=== PATIENT | male | born 1955 | race Caucasian/White ===

== ENCOUNTER 2022-04-21 03:39 | Emergency (ER) | payer OTHER ==
--- OUTSIDE RECORDS SUMMARY | 2022-04-21 03:42 | XMS REPORT | Continuity of Care Document ---
:[address] [facility] t Address [address] [place] [address] [address]. Al[address] [place] [address] Care Team Providers Name Role Phone Unavailable Unavailable Unavailable Payers Payer Name Policy Type Policy Number Effective Date Expiration Date José Miguel finney [facility] [id number] 2021 00:00:00 Problems This patient has no known problems. Allergies, Adverse Reactions, Alerts This patient has no known allergies or adverse reactions. Medications This patient has no known medications. Procedures This patient has no known procedures. Encounters Start End Encounter Admission Attending Care Care Encounter Source Date/Time Date/Time Type Type Clinicians Facility Department ID 2022-04-09 Outpatient [facility] [id number] [place] 09:21:02 [id number] Health Results This patient has no known results.
[2022-04-21 05:01] LABS: Absolute Lymphocytes (CBC) 0.8 K/uL (0.7-4.9); Hematocrit 32.4 % (39.6-49.0); Lymphocytes % 13.7 % (15.3-44.8); MCV 89.7 fL (80-100); MPV 9.4 fL (7.6-11.3); RBC Red Blood Cell Count 3.62 M/uL (4.33-5.43)
[2022-04-21] MEDS ORDERED: FUROSEMIDE 40 MG/4 ML VIAL ONE (05:01)
[2022-04-21 05:05] LABS: Protime INR 1.95
--- NOTE | 2022-04-21 05:12 | ER ---
Nurse's Notes [facility] Name: Khris Braden Age: 67 yrs Sex: Male : 1955 Arrival Date: 04/21/2022 Time: 03:40 Bed 14 Private MD: Diagnosis: Unspecified combined systolic (congestive) and diastolic (congestive) heart failure;Dyspnea;Chronic kidney disease, stage 4 (severe);Liver transplant status;Non ST elevation [place];truck terminal manager (current) use of anticoagulants;Coronavirus infection, unspecified;SARS-associated coronavirus as the cause of diseases classified elsewhere Presentation: 04/21 03:47 Chief complaint: Patient states: janelle had SOB for several months but tonight it woke me lg3 out of my sleep. t. it has gotten better but i was worried due to my recent cardiac history. Coronavirus screen: Client denies travel out of the [place] in the last 14 days. At this time, the client does not indicate any symptoms associated with coronavirus-19. Ebola Screen: No symptoms or risks identified at this time. Initial Sepsis Screen: Does the patient meet any 2 criteria? No. Patient's initial sepsis screen is negative. Does the patient have a suspected source of infection? No. Patient's initial sepsis screen is negative. Risk Assessment: Do you want to hurt yourself or someone else? Patient reports no desire to harm self or others. Onset of symptoms was April 21, 2022. 03:47 Method Of Arrival: EMS: [facility] lg3 03:47 Acuity: ELIZABETH 3 lg3 Triage Assessment: 03:52 General: Appears in no apparent distress. comfortable, Behavior is calm, cooperative. lg3 Pain: Denies pain. EENT: No deficits noted. No signs and/or symptoms were reported regarding the EENT system. Neuro: No deficits noted. Arvizu Agitation-Sedation Scale (RASS): 0 - Alert and Calm Level of Consciousness is awake, alert, obeys commands, Oriented to person, place, time, situation. Cardiovascular: No deficits noted. Denies chest pain, Capillary refill < 3 seconds Clubbing of nail beds is absent Patient's skin is warm and dry. Respiratory: Reports shortness of breath at rest on exertion Airway is patent Respiratory effort is even, unlabored, Respiratory pattern is regular, symmetrical, Breath sounds are clear bilaterally. GI: No deficits noted. No signs and/or symptoms were reported involving the gastrointestinal system. Abdomen is round non-distended, Bowel sounds present X 4 quads. Abd is soft and non tender X 4 quads. : No deficits noted. No signs and/or symptoms were reported regarding the genitourinary system. Derm: No deficits noted. No signs and/or symptoms reported regarding the dermatologic system. Skin is intact, is healthy with good turgor, Skin is dry, Skin is normal, Skin temperature is warm. Musculoskeletal: No deficits noted. No signs and/or symptoms reported regarding the musculoskeletal system. Circulation, motion, and sensation intact. Range of motion: intact in all extremities. Historical: - Allergies: 03:51 No Known Allergies; lg3 - Home Meds: 04:57 clopidogrel 75 mg oral tab 1 tab once daily [Active]; furosemide 40 mg Oral tab 1 tab lg3 once daily [Active]; hydralazine 25 mg Oral tab 1 tab every 8 hours [Active]; isosorbide dinitrate 10 mg Oral tab 1 tab 3 times per day [Active]; sevelamer carbonate 800 mg oral tab 1 tab 3 times per day [Active]; warfarin 5 mg Oral tab 1 tab once daily [Active]; aspirin 81 mg Oral cap 1 cap once daily [Active]; atorvastatin 80 mg oral tab 1 tab once daily [Active]; carvedilol 12.5 mg oral tab 1 tab 2 times per day [Active]; mycophenolate mofetil 500 mg oral tab 2 times per day [Active]; tacrolimus 0.5 mg oral cp24 1 cap once daily [Active]; glyburide 2.5 mg Oral tab 1 tab once daily [Active]; - PMHx: 03:51 [place] X2; TIA X2; HTN; Diabetes mellitus; lg3 03:52 stage 4 renal disease; lg3 - PSHx: 03:52 cardiac stents; liver transplant; lg3 - Immunization history:: Adult Immunizations up to date, Client reports having NOT received the Covid vaccine. - Social history:: Smoking status: Patient denies any tobacco usage or history of. Patient/guardian denies using alcohol, street drugs. Screenin:55 Abuse screen: Denies threats or abuse. Denies injuries from another. Nutritional lg3 screening: No deficits noted. Tuberculosis screening: No symptoms or risk factors identified. Fall Risk None identified. Assessment: 03:55 General: see triage assessment . lg3 05:20 Reassessment: Patient appears in no apparent distress at this time. No changes from lg3 previously documented assessment. Patient and/or family updated on plan of care and expected duration. Pain level reassessed. Patient is alert, oriented x 3, equal unlabored respirations, skin warm/dry/pink. Patient states feeling better. Patient states symptoms have improved. 06:56 Reassessment: Patient appears in no apparent distress at this time. No changes from lg3 previously documented assessment. Patient and/or family updated on plan of care and expected duration. Pain level reassessed. Patient is alert, oriented x 3, equal unlabored respirations, skin warm/dry/pink. Patient states symptoms have improved. 06:58 General: attempted to call report. no answer.. lg3 07:00 Reassessment: RECD REPORT FROM GHAZALA MARS. 67YO WM P/W SOB, TRANSFER FOR NSTEMI IN bp PROCESS. 07:30 Reassessment: REPORT TO LAKESHA MARS AT [facility], TRANSPORT PENDING. bp 08:17 Reassessment: EMS AT FOR TRANSPORT. bp Vital Signs: 03:47 BP 132 / 86; Pulse 82; Resp 18; Temp 98.1(O); Pulse Ox 100% on R/A; Weight 95.25 kg lg3 (R); Height 6 ft. 4 in. (193.04 cm) (R); Pain 0/10; 04:50 BP 131 / 94; Pulse 82; Resp 20 S; Pulse Ox 98% on R/A; Pain 0/10; lg3 04:50 BP 141 / 102; Pulse 84; Resp 19 S; Pulse Ox 98% on R/A; Pain 0/10; lg3 07:00 BP 124 / 107; Pulse 75; Resp 17; Temp 98.1; Pulse Ox 98% ; bp 03:47 Body Mass Index 25.56 (95.25 kg, 193.04 cm) lg3 ED Course: 03:40 Patient arrived in ED. lg3 03:41 Ghazala Simmons, MADISYN is Primary Nurse. lg3 03:41 Kamar Ward MD is Attending Physician. veronique 03:50 Triage completed. lg3 03:52 Arm band placed on right wrist. lg3 03:55 Patient has correct armband on for positive identification. Placed in gown. Bed in low lg3 position. Call light in reach. Side rails up X 1. Client placed on continuous cardiac and pulse oximetry monitoring. NIBP monitoring applied. in process inspector on. Door closed. Noise minimized. Warm blanket given. 03:55 Maintain EMS IV. Dressing intact. Good blood return noted. Site clean \\T\\ dry. Gauge \\T\\ lg 3 site: 20 Lwrist. Patient maintains SpO2 saturation greater than 95% on room air. 04:22 EKG done, by ED staff, reviewed by Kamar Ward MD. mh5 04:38 XRAY Chest (1 view) In Process Unspecified. EDMS 04:38 Basic Metabolic Panel Sent. lg3 04:38 CBC with Diff Sent. lg3 04:38 LFT's Sent. lg3 04:38 Magnesium Sent. lg3 04:38 NT PRO-BNP Sent. lg3 04:38 PT-INR Sent. lg3 04:38 Troponin HS Sent. lg3 04:41 SARS-COV-2 RT PCR (Document "Date of Onset" if Symptomatic) Sent. lg3 05:28 initiated a transfer with Britt from [facility]. mw2 05:[address] Ward with the Doctor from [facility]. mw2 05:56 administrative approval given by Britt Valentin/ patient has been accepted to [address] to a [facility] bed/ Dr. Echols accepted the patient in transfer/report to be called to [phone]. 06:11 Notified ED physician of a critical lab result(s). covid +. tw5 07:15 Primary Nurse role handed off by Ghazala Simmons, MADISYN eb 07:21 Michael Buckner, MADISYN is Primary Nurse. bp 08:18 No provider procedures requiring assistance completed. Patient transferred, IV remains bp in place. Administered Medications: 04:57 Drug: Lasix (furosemide) 40 mg Route: IVP; Site: left wrist; lg3 05:27 Follow up: Response: No adverse reaction lg3 05:19 Drug: Aspirin 81 mg Route: PO; lg3 05:27 Follow up: Response: No adverse reaction lg3 05:19 Drug: PlaVIX (clopidogrel) 75 mg Route: PO; lg3 05:28 Follow up: Response: No adverse reaction lg3 05:27 Drug: Pepcid (famotidine) 20 mg Route: IVP; Site: left wrist; lg3 05:28 Follow up: Response: No adverse reaction lg3 06:22 Drug: Coumadin (warfarin) 5 mg Route: PO; lg3 06:56 Follow up: Response: No adverse reaction lg3 06:22 CANCELLED (Other Intervention Used): Atorvastatin 80 mg PO once lg3 06:22 Drug: HydrALAZINE 25 mg Route: PO; lg3 06:56 Follow up: Response: No adverse reaction lg3 Medication: 08:18 VIS not applicable for this client. bp Outcome: 05:12 ER care complete, transfer ordered by . veronique 08:17 Transferred by ground EMS to [facility], Transfer form completed. bp 08:17 Condition: stable 08:17 Instructed on the need for transfer. 08:18 Patient left the ED. bp Signatures: Dispatcher [employer] EDMS Kamar Ward MD MD cha Martinez, Maria 5 Michael Bucnker RN RN Aguila Miranda 2 Laverne Li Lacie, RN RN lg3 Raquel Singletary tw5 Corrections: (The following items were deleted from the chart) 03:53 03:51 PMHx: liver transplant; lg3 lg3
--- NOTE | 2022-04-21 05:12 | EDPHYS ---
Physician Documentation [facility] Name: Khris Braden Age: 67 yrs Sex: Male : 1955 Arrival Date: 04/21/2022 Time: 03:40 Bed 14 Private MD: ED Physician Kamar Ward HPI: 04/21 04:52 This 67 yrs old Male presents to ER via EMS with unknown complaint. veronique 04:52 The patient has shortness of breath at rest. Onset: The symptoms/episode began/occurred veronique 1 day(s) ago. Duration: The symptoms are continuous, but are steadily getting better. The patient's shortness of breath has no apparent modifying factors. Historical: - Allergies: 03:51 No Known Allergies; lg3 - Home Meds: 04:57 clopidogrel 75 mg oral tab 1 tab once daily [Active]; furosemide 40 mg Oral tab 1 tab lg3 once daily [Active]; hydralazine 25 mg Oral tab 1 tab every 8 hours [Active]; isosorbide dinitrate 10 mg Oral tab 1 tab 3 times per day [Active]; sevelamer carbonate 800 mg oral tab 1 tab 3 times per day [Active]; warfarin 5 mg Oral tab 1 tab once daily [Active]; aspirin 81 mg Oral cap 1 cap once daily [Active]; atorvastatin 80 mg oral tab 1 tab once daily [Active]; carvedilol 12.5 mg oral tab 1 tab 2 times per day [Active]; mycophenolate mofetil 500 mg oral tab 2 times per day [Active]; tacrolimus 0.5 mg oral cp24 1 cap once daily [Active]; glyburide 2.5 mg Oral tab 1 tab once daily [Active]; - PMHx: 03:51 [place] X2; TIA X2; HTN; Diabetes mellitus; lg3 03:52 stage 4 renal disease; lg3 - PSHx: 03:52 cardiac stents; liver transplant; lg3 - Immunization history:: Adult Immunizations up to date, Client reports having NOT received the Covid vaccine. - Social history:: Smoking status: Patient denies any tobacco usage or history of. Patient/guardian denies using alcohol, street drugs. ROS: 05:03 Constitutional: Negative for fever, chills, and weight loss, Eyes: Negative for injury, veronique pain, redness, and discharge, ENT: Negative for injury, pain, and discharge, Neck: Negative for injury, pain, and swelling, Cardiovascular: Negative for chest pain, palpitations, and edema, Abdomen/GI: Negative for abdominal pain, nausea, vomiting, diarrhea, and constipation, Back: Negative for injury and pain, : Negative for injury, bleeding, discharge, and swelling, MS/Extremity: Negative for injury and deformity, Skin: Negative for injury, rash, and discoloration, Neuro: Negative for headache, weakness, numbness, tingling, and seizure, Psych: Negative for depression, anxiety, suicide ideation, homicidal ideation, and hallucinations, Allergy/Immunology: Negative for hives, rash, and allergies, Endocrine: Negative for neck swelling, polydipsia, polyuria, polyphagia, and marked weight changes, Hematologic/Lymphatic: Negative for swollen nodes, abnormal bleeding, and unusual bruising. 05:03 Respiratory: Positive for cough, shortness of breath, at rest. Exam: 05:03 Constitutional: This is a well developed, well nourished patient who is awake, alert, veronique and in no acute distress. Head/Face: Normocephalic, atraumatic. Eyes: Pupils equal round and reactive to light, extra-ocular motions intact. Lids and lashes normal. Conjunctiva and sclera are non-icteric and not injected. Cornea within normal limits. Periorbital areas with no swelling, redness, or edema. ENT: Nares patent. No nasal discharge, no septal abnormalities noted. Tympanic membranes are normal and external auditory canals are clear. Oropharynx with no redness, swelling, or masses, exudates, or evidence of obstruction, uvula midline. Mucous membranes moist. Neck: Trachea midline, no thyromegaly or masses palpated, and no cervical lymphadenopathy. Supple, full range of motion without nuchal rigidity, or vertebral point tenderness. No Meningismus. Chest/axilla: Normal chest wall appearance and motion. Nontender with no deformity. No lesions are appreciated. Cardiovascular: Regular rate and rhythm with a normal S1 and S2. No gallops, murmurs, or rubs. Normal PMI, no JVD. No pulse deficits. Respiratory: Lungs have equal breath sounds bilaterally, clear to auscultation and percussion. No rales, rhonchi or wheezes noted. No increased work of breathing, no retractions or nasal flaring. Abdomen/GI: Soft, non-tender, with normal bowel sounds. No distension or tympany. No guarding or rebound. No evidence of tenderness throughout. Back: No spinal tenderness. No costovertebral tenderness. Full range of motion. Male : Normal genitalia with no discharge or lesions. Skin: Warm, dry with normal turgor. Normal color with no rashes, no lesions, and no evidence of cellulitis. MS/ Extremity: Pulses equal, no cyanosis. Neurovascular intact. Full, normal range of motion. Neuro: Awake and alert, GCS 15, oriented to person, place, time, and situation. Cranial nerves II-XII grossly intact. Motor strength 5/5 in all extremities. Sensory grossly intact. Cerebellar exam normal. Normal gait. Psych: Awake, alert, with orientation to person, place and time. Behavior, mood, and affect are within normal limits. 05:03 ECG was reviewed by the Attending Physician. Vital Signs: 03:47 BP 132 / 86; Pulse 82; Resp 18; Temp 98.1(O); Pulse Ox 100% on R/A; Weight 95.25 kg lg3 (R); Height 6 ft. 4 in. (193.04 cm) (R); Pain 0/10; 04:50 BP 131 / 94; Pulse 82; Resp 20 S; Pulse Ox 98% on R/A; Pain 0/10; lg3 04:50 BP 141 / 102; Pulse 84; Resp 19 S; Pulse Ox 98% on R/A; Pain 0/10; lg3 07:00 BP 124 / 107; Pulse 75; Resp 17; Temp 98.1; Pulse Ox 98% ; bp 03:47 Body Mass Index 25.56 (95.25 kg, 193.04 cm) lg3 MDM: 03:41 Patient medically screened. veronique 05:05 Differential diagnosis: CHF exacerbation, Chronic Obstructive Pulmonary Disease veronique pneumonia, Pneumothorax pulmonary edema, Pulmonary Embolism reactive airway disease, Unstable Angina. Antibiotic administration: Not indicated. The patient's Wells Deep Vein Thrombosis Score was calculated as follows: Total Score: 0-2 Pts- Low Risk. The patient's pulmonary embolism risk score was calculated as follows: Total Score: 0-2 points. This patient was found to be at low risk for a pulmonary embolism by using the Well's assessment criteria. Immunization status: Pneumococcal vaccine: Influenza vaccine: Data reviewed: vital signs, nurses notes, lab test result(s), EKG, radiologic studies, plain films. Data interpreted: school lunch monitor: rate is 82 beats/min, rhythm is regular, Pulse oximetry: on room air is 82 %. Test interpretation: by ED physician or midlevel provider: ECG, plain radiologic studies. Counseling: I had a detailed discussion with the patient and/or guardian regarding: the historical points, exam findings, and any diagnostic results supporting the discharge/admit diagnosis, lab results, radiology results, the need to transfer to another facility, for higher level of care, [facility] does not immediately have the required specialist. 04/21 03:43 Order name: Basic Metabolic Panel; Complete Time: 07:12 [facility] 04/21 03:43 Order name: CBC with Diff; Complete Time: 05:10 [facility] 04/21 03:43 Order name: LFT's; Complete Time: 07:12 [facility] 04/21 03:43 Order name: Magnesium; Complete Time: 07:12 [facility] 04/21 03:43 Order name: NT PRO-BNP; Complete Time: 07:12 [facility] 04/21 03:43 Order name: PT-INR; Complete Time: 05:10 [facility] 04/21 03:43 Order name: Troponin HS; Complete Time: 07:12 [facility] 04/21 03:43 Order name: XRAY Chest (1 view) [facility] 04/21 03:43 Order name: SARS-COV-2 RT PCR (Document "Date of Onset" if Symptomatic); Complete Time: [facility] 07:04/21 03:43 Order name: EKG; Complete Time: 03:44 [facility] 04/21 03:43 Order name: Cardiac monitoring; Complete Time: 03:47 [facility] 04/21 03:43 Order name: EKG - Nurse/Tech; Complete Time: 04:22 [facility] 04/21 03:43 Order name: IV Saline Lock; Complete Time: 03:47 [facility] 04/21 03:43 Order name: Labs collected and sent; Complete Time: 04:38 [facility] 04/21 03:43 Order name: O2 Per Protocol; Complete Time: 03:47 [facility] 04/21 03:43 Order name: O2 Sat Monitoring; Complete Time: 03:47 [facility] EC:03 Rate is 84 beats/min. Rhythm is regular. QRS [place] is Normal. IN interval is normal. QRS veroinque interval is normal. QT interval is normal. No Q waves. T waves are Inverted in leads I, aVL. ST Segment is elevated in leads V3, V4, V5. Clinical impression: NSR w/ Non-specific ST/T Changes. Interpreted by me. Reviewed by me. Administered Medications: 04:57 Drug: Lasix (furosemide) 40 mg Route: IVP; Site: left wrist; lg3 05:27 Follow up: Response: No adverse reaction lg3 05:19 Drug: Aspirin 81 mg Route: PO; lg3 05:27 Follow up: Response: No adverse reaction lg3 05:19 Drug: PlaVIX (clopidogrel) 75 mg Route: PO; lg3 05:28 Follow up: Response: No adverse reaction lg3 05:27 Drug: Pepcid (famotidine) 20 mg Route: IVP; Site: left wrist; lg3 05:28 Follow up: Response: No adverse reaction lg3 06:22 Drug: Coumadin (warfarin) 5 mg Route: PO; lg3 06:56 Follow up: Response: No adverse reaction lg3 06:22 CANCELLED (Other Intervention Used): Atorvastatin 80 mg PO once lg3 06:22 Drug: HydrALAZINE 25 mg Route: PO; lg3 06:56 Follow up: Response: No adverse reaction lg3 Disposition Summary: 04/21/22 05:12 Transfer Ordered Transfer Location: [facility] veronique Reason: Higher level of care veronique Condition: Stable veronique Problem: new veronique Symptoms: have improved veronique Accepting Physician: TO YUMIKO , CARDIO(04/21/22 08:18) bp Diagnosis - Unspecified combined systolic (congestive) and diastolic (congestive) heart failure veronique - Dyspnea veronique - Chronic kidney disease, stage 4 (severe) veronique - Liver transplant status veronique - Non ST elevation [place] veronique - 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 veronique - Coronavirus infection, unspecified veronique - SARS-associated coronavirus as the cause of diseases classified elsewhere veronique Forms: - Medication Reconciliation Form veronique - SBAR form veronique Signatures: Dispatcher [employer] EDKamar Ribeiro MD MD cha Attema, Lee, [employer] PERSON-Cla1 Michael Buckner RN RN bp Ghazala Simmons RN RN lg3 Corrections: (The following items were deleted from the chart) 03:53 03:51 PMHx: liver transplant; lg3 lg3 05:55 05:12 TO HH , CARDIO veronique veronique 06:18 05:55 TO HH , CARDIO veronique veronique 06:22 06:11 Atorvastatin 80 mg PO once ordered. lg3 lg3 08:18 06:18 TO HH , CARDIO veronique bp
[2022-04-21] MEDS ORDERED: ASPIRIN 81 MG CHEWABLE TABLET ONE (05:25)
[2022-04-21] MEDS ORDERED: CLOPIDOGREL 75 MG TABLET ONE (05:25)
[2022-04-21] MEDS ORDERED: FAMOTIDINE 20 MG/2 ML VIAL IV ONE (05:31)
[2022-04-21 05:35] LABS: AST/SGOT 9 U/L (15-37); Albumin 3.3 g/dL (3.4-5.0); BUN Blood Urea Nitrogen 45 mg/dL (7-18); Bicarbonate 26 mmol/L (21-32); Glomerular Filtration Rate 14 ml/min (=/>90); Glucose Level 182 mg/dL (74-106); Magnesium 1.8 mg/dL (1.8-2.4); Potassium 4.2 mmol/L (3.5-5.1); Sodium Level 139 mmol/L (136-145)
[2022-04-21 05:45] LABS: ALT/SGPT 29 U/L (12-78); Alkaline Phosphatase 83 U/L (45-117); Bilirubin Direct < 0.1 mg/dL (0-0.2); Bilirubin Total 0.2 mg/dL (0.2-1.0); Protein, Total 6.8 g/dL (6.4-8.2)
[2022-04-21 05:52] LABS: NT PRO-BNP 32855 pg/mL (<125)
[2022-04-21 05:53] LABS: Troponin High Sensitivity 1043.5 pg/mL (<58.9)
[2022-04-21] MEDS ORDERED: WARFARIN SODIUM 5 MG TAB ONE (06:24)
[2022-04-21] MEDS ORDERED: HYDRALAZINE HCL 25 MG TABLET ONE (06:25)
[2022-04-21] MEDS ORDERED: ATORVASTATIN 20 MG TAB ONE (06:25)
--- NOTE | 2022-04-22 12:57 | RAD REPORT ---
EXAM DESCRIPTION: RAD - Chest Single View - 04/21/2022 4:37 am CLINICAL HISTORY: 67 years Male, DYSPNEA COMPARISON: Prior chest x-ray report from 09/03/2019. The image was unavailable for review TECHNIQUE: Single portable x-ray view of the chest performed on 04/21/2022 at 4:24 AM FINDINGS: The lungs are well expanded. There are patchy interstitial and alveolar opacities bilatera lly greater on the right which may be due to edema or multifocal pneumonia. The lateral costophrenic sulci are clear. There is no evidence of a pneumothorax. The cardiac silhouette is normal in size and configuration. The mediastinal contours are normal. No acute osseous abnormality is identified. No acute soft tissue abnormalities are seen. Lines and tubes: None. Free air: None IMPRESSION: Patchy interstitial and alveolar opacities bilaterally greater on the right which may be due to edema or multifocal pneumonia. Electronically signed by: Nirali Muro DO 04/21/2022 5:29 AM CDT Due to temporary technical issues with the PACS/Fluency reporting system, reports are being signed by the in house radiologists without review as a courtesy to insure prompt reporting. The interpreting radiologist is fully responsible for the content of the report.
[2022-04-22 19:51] VITALS: TEMP 98.1
[2022-04-22 20:17] VITALS: O2SAT 98
[2022-04-22 20:24] VITALS: BP 124/107
--- NOTE | 2022-04-24 06:42 | EKG ---
Test Date: 2022-04-21 Test Time: 04:32:49 Straddle Buggy Operator: LUIS MEASUREMENT RESULTS: Intervals: Rate: 84 KS: 176 QRSD: 100 QT: 416 QTc: 491 [place]: P: 45 KS: 176 QRS: -50 T: 156 INTERPRETIVE STATEMENTS: Normal sinus rhythm Possible Left atrial enlargement Left anterior fascicular block Inferior infarct, age undetermined Anterolateral infarct, age undetermined Abnormal ECG No previous ECG available for comparison Electronically Signed On 04-24-22 06:32:44 CDT by Kareem Champion
== END 2022-04-21 08:18 | disposition short-term general hospital (02) ==
LOC: ER 03:39
DX: U07.1 COVID-19 (principal); I50.40 Unspecified combined systolic (congestive) and diastolic (congestive) heart failure; I21.4 Non-ST elevation (NSTEMI) myocardial infarction; I10 Essential (primary) hypertension; E11.22 Type 2 diabetes mellitus with diabetic chronic kidney disease; N18.4 Chronic kidney disease, stage 4 (severe); Z94.4 Liver transplant status; Z79.01 Long term (current) use of anticoagulants
CPT/HCPCS: 93005; 85025; 80048; 36415; 83735; 85610; 80076; 84484; 83880; 71045; 96375; 96374; 99285; U0003; J1940